=== PATIENT | female | born 1960 | race American Indian/Alaskan Native ===

== ENCOUNTER 2021-12-30 10:26 | Outpatient (CLI) | payer OTHER ==
--- NOTE | 2021-12-30 11:46 | XRay Report ---
RIGHT HIP 3 VIEW(S) INDICATION / CLINICAL INFORMATION: M25.551 PAIN IN RIGHT HIP COMPARISON: None available. FINDINGS: BONES / JOINT(S): No acute fracture or subluxation. Severe osteoarthrosis of the right hip joint with complete joint space loss and [id number] appearance. Subchondral sclerosis and cystic change of th e femoral head and acetabulum. SOFT TISSUES: No significant abnormality. ADDITIONAL FINDINGS: None. Signer Name: Daniel Kmi MD Signed: 12/30/2021 11:41 AM Workstation Name: [id number]
== END 2021-12-30 10:27 | disposition home or self-care (01) ==
LOC: XRAY 10:26
PROVIDERS: ATTEND Orthopaedic Surgery
DX: M16.11 Unilateral primary osteoarthritis, right hip (principal)